=== PATIENT | male | born 1975 | race Caucasian/White ===

== ENCOUNTER 2025-05-04 20:01 | Emergency (ER) | payer BC ==
[~2025-05-04] VITALS: Ht 169.7 cm; Wt 94.3 kg
--- NOTE | 2025-05-04 20:49 | RADIOLOGY REPORT ---
CLINICAL INDICATION: HAND PAIN TECHNIQUE: 3 radiographic views of the left hand were obtained. Comparison: None FINDINGS/IMPRESSION: There is no evidence of acute fracture or dislocation. Small well corticated bony fragment adjacent to the ulnar styloid which may represent sequela of prior injury. The visualized joint space is well maintained. The alignment is anatomical. There is gauze like material overlying the soft tissues of the hand.
--- NOTE | 2025-05-04 22:08 | Physician Documentation ---
History of Present Illness ~ Chief Complaint: Bite-animal Stated Complaint: DOG BITE BHAND Time Seen by MD: 20:52 HPI Domestic dog bite to the left hand vaccinated animal. Patient is right-hand dominant male. Subcutaneous tissue exposed of the left thenar with inrregular l aceration 2 cm. Grossly neurologically intact of radial, median & ulnar nerve. Tetanus is up-to-date. Bleeding controlled. Tetanus within 5 years?: Yes (2021) Medication Reconciliation Allergies: Coded Allergies: No Known Allergies (Unverified , 05/04/25) Scheduled Amox Tr/Potassium Clavulanate (Augmentin 875-125 Tablet), 1 TAB PO Q12H Review of Systems All Other Systems at this time: Reviewed and Negative Musculoskeletal: Reports: muscle pain, muscle swelling Integumentary: Reports: laceration(s) Physical Exam Vital Signs: Temperature: 98.1, Heart Rate: 107, Respiratory Rate: 16, BP: 138/97, Pulse Oximetry: 97, Weight: 94.300 Oxygen Flow Rate: 0 General Appearance: alert, WD/WN, mild distress Eyes, Ears, Nose: PERRL/EOMI Airway: patent Neck: full range of motion Cardiovascular: regular rate, rhythm Respiratory: normal breath sounds Gastrointestinal: normal palpation Extremities: normal range of motion, other (2 cm irregular laceration with subcutaneous tissue exposed to the thenar aspect left palm. Grossly neurologically intact radial median ulnar nerve.) Neurologic: oriented x4 Psychiatric: normal mood/affect Skin: normal color Procedures Laceration/Wound Repair Laceration/Wound Repair : Location: Left palm thenar Length (cm): 2 Anesthesia: Lidocaine Volume Anesthetic (mls): 3 Prep: shur-clens, scrubbed Debrided: moderate Undermining: minimal Margins: revised Foreign Body: not identified Repaired: skin Wound Repaired With: sutures Suture Size/Type: 3-0, nylon Number of Superficial Sutures: 3 Tolerated Procedure Well?: yes, no complications Procedure Note Wound requiring undermining and debridement prior to closure. Wound edges well approximated with loose closure. Patient remains grossly neurologically intact radial, median and ulnar nerve. Progress Results/Orders Results/Orders Completed Orders - ISAURA ARREDONDO PAC Amox Tr/Potassium Clavulanate (Augmentin (05/04/25 22:10) Vital Signs 05/04/25 05/04/25 20:13 22:25 Temp 98.1 98.6 Pulse 107 99 Resp 16 18 B/P (MAP) 138/97 136/92 Pulse Ox 97 99 O2 Flow Rate 0 Medical Decision Making Additional Comment Examination history warrants x-ray imaging to evaluate for foreign body. Patient remains grossly logically intact. Tetanus is up-to-date. Wound requires undermining and loose closure. Wound prepped and draped and ane sthetized. Copious irrigation with soap and water. See procedure note. After undermining 5 times 3-0 simple interrupted sutures placed with well approximated wound edges loosely closed. First dose antibiotic provided in the emergency room department tonight. 72 hour recheck recommended in suture removal in 10-14 days. Departure Disposition: 01 HOME / SELF CARE / HOMELESS Impression: Primary Impression: Dog bite Qualified Codes: W54.0XXA - Bitten by dog, initial encounter Condition: Stable Discharge Instructions: Animal Bite, Adult Additional Instructions: Tonight in the emergency department you had your wound managed in loosely closed. Please begin antibiotics as directed and return to the emergency department in 72 hours for wound check. Have sutures removed in 10-14 days. Referrals: NO PRIMARY CARE PROVIDER (PCP) Prescriptions Amox Tr/Potassium Clavulanate (Augmentin 875-125 Tablet) 1 Each Tablet 1 TAB PO Q12H for 10 Days, #20 TAB Prov: ISAURA ARREDONDO PAC 05/04/25 Education Educated: Patient Educated regarding: diagnosis, treatment Signature Scribe Signature: . Attestation: . ISAURA ARREDONDO PAC May 04, 2025 22:08
[2025-05-04] MEDS: amox tr/potassium clavulanate 875/125mg TAB PO ONE (22:15)
[2025-05-04] MEDS ORDERED: AMOX-117 PO (22:23)
[2025-05-04 22:25] VITALS: BP 136/92; PULSE 99; RESP 18; TEMP 98.6; O2SAT 99
== END 2025-05-04 22:25 | disposition home or self-care (01) ==
LOC: ER 20:03
DX: S61.452A Open bite of left hand, initial encounter (principal); W54.0XXA Bitten by dog, initial encounter; Y93.89 Activity, other specified; Y92.89 Other specified places as the place of occurrence of the external cause; Y99.8 Other external cause status
CPT/HCPCS: 12001; 73130; 99283; A6222; A6449